=== PATIENT | female | born 1990 | race Caucasian/White ===

== ENCOUNTER 2018-09-10 21:00 | Emergency (ER) | payer OTHER ==
[2018-09-10 21:05] VITALS: TEMP 98.3
--- NOTE | 2018-09-10 21:15 | ED ---
Wound/Laceration HPI - General Chief Complaint: Wound/Laceration Stated Complaint: Hand Lac Time Seen by Provider: 09/10/18 21:15 Source: patient Mode of arrival: ambulatory Limitations: no limitations - History of Present Illness Initial Comments: Rach is a pleasant 28-year-old female presents to the emergency department today for evaluation of a laceration to her right pinky finger. Patient reports that she was washing dishes when she broke a glass and cut her finger. Patient immediately washed the area and wrapped it in a paper towel before coming to the emergency department. Patient believes her last tetanus vaccine was updated in her mid teens. - Related Data Home Medications Medication Instructions Recorded Confirmed No Known Home Medications 09/10/18 09/10/18 Allergies Allergy/AdvReac Type Severity Reaction Status Date / Time No Known Allergies Allergy Verified 09/10/18 21:24 Review of Systems ROS Statement: Those systems with pertinent positive or pertinent negative responses have been documented in the HPI. ROS Other: All systems not noted in ROS Statement are negative. Past Medical History Past Medical History: No Reported History History of Any Multi-Drug Resistant Organisms: None Reported Past Surgical History: No Surgical Hx Reported Past Psychological History: Anxiety Smoking Status: Never smoker Past Alcohol Use History: None Reported Past Drug Use History: None Reported General Exam - General Exam Comments Initial Comments: Physical Exam GENERAL: Patient is well-developed and well-nourished. Patient is nontoxic and well-hydrated and is anxious and tearful HENT: Normocephalic, Atraumatic. EYES: PERRL, EOMI PULMONARY: Unlabored respirations. CARDIOVASCULAR: Tachycardic, regular warm and well perfused extremities ABDOMEN: Soft and nontender with normal bowel sounds. SKIN: Flap laceration over the flexor surface of the pinky finger and the right hand : Deferred NEUROLOGIC: Patient is alert and oriented x3. Moving all extremities spontaneously MUSCULOSKELETAL: Normal extremities with adequate strength and full range of motion. No lower extremity swelling or edema. No calf tenderness. PSYCHIATRIC: Normal psychiatric evaluation. Limitations: no limitations Limitations: no limitations Course Vital Signs 09/10/18 21:02 Temperature 98.3 F Pulse Rate 114 H Respiratory 15 Rate Blood Pressure 135/72 O2 Sat by Pulse 100 Oximetry Procedures - Laceration Laceration #1 Consent Obtained: verbal consent Indication: laceration Site: hand Size (cm): 3 Description: flap Depth: involves muscle layer Anesthetic Used: lidocaine 1% Anesthesia Technique: nerve block Pre-repair: wound explored, irrigated extensively, deep structures intact Type of Sutures: nylon Size of Sutures: 6-0 Number of Sutures: 8 Technique: simple, interrupted Patient Tolerated Procedure: well, no complications - Nerve Block Consent Obtained: verbal consent Local Anesthetic Used: Lidocaine 1% Side: right Nerve Blocks: digital Procedure Successful: Yes Complications: none Patient Tolerated Procedure: well, no complications Medical Decision Making - Medical Decision Making Patient was seen and evaluated history is obtained from the patient Finger was anesthestized with 2ml of 15 lidocaine Wound explored, visible flexor tendons without injury Laceration is V shaped flap measures 2cm on lateral surface of finger and 1cm on medial surface Full ROM of the finger with normal strength Laceration was repaired with 8 simple interrupted sutures of 6.0 nylon Patient tolerated laceration repair well Disposition Clinical Impression: Laceration Disposition: HOME SELF-CARE Instructions (If sedation given, give patient instructions): Care For Your Stitches (DC) Additional Instructions: Return in 7 days for suture removal Is patient prescribed a controlled substance at d/c from ED?: No Referrals: None,Stated [Primary Care Provider] - 1-2 days
[2018-09-10] MEDS ORDERED: DIPH,PERTUS(ACELL)TETVAC-LF 0.5 ML VIAL IM ONE (21:31)
[2018-09-10] MEDS ORDERED: LIDOCAINE 1% INJ 10MG/ML (20 ML MDV) SQ ONE (21:31)
[2018-09-10 22:34] VITALS: BP 140/82; PULSE 91; RESP 18
== END 2018-09-10 22:26 | disposition home or self-care (01) ==
LOC: EC 21:00
DX: S61.216A Laceration without foreign body of right little finger without damage to nail, initial encounter (principal); Z23 Encounter for immunization; W25.XXXA Contact with sharp glass, initial encounter; Y93.G1 Activity, food preparation and clean up; Y92.009 Unspecified place in unspecified non-institutional (private) residence as the place of occurrence of the external cause
CPT/HCPCS: 90715; 99282; 12002; 90471; J2001

== ENCOUNTER 2021-07-18 07:00 | Inpatient (IN) | payer OTHER ==
[2021-07-18] MEDS ORDERED: TERBUTALINE 1 MG/ML VIAL SQ PRN (08:45)
[2021-07-18] MEDS ORDERED: LACTATED RINGERS 1,000 ML IV SCH (08:45)
[2021-07-18] MEDS ORDERED: METHYLERGONOVINE 0.2 MG/ML 1 ML AMP IM PRN (08:45)
[2021-07-18] MEDS ORDERED: CARBOPROST TROMETHAMINE 250 MCG/ML 1 ML AMP IM PRN (08:45)
[2021-07-18] MEDS ORDERED: OXYTOCIN 30 UNITS/500 ML NS 30 UNIT in SALINE 1 500ML.BAG IV SCH (08:45)
[2021-07-18] MEDS ORDERED: OXYTOCIN 10 UNIT/ML 1 ML VIAL IM PRN (08:45)
[2021-07-18] MEDS ORDERED: LIDOCAINE 1% (PF) 10 MG/ML (30 ML SDV) SQ PRN (08:45)
[2021-07-18] MEDS: LACTATED RINGERS 1,000 ML IV SCH ×3 (09:10→22:24)
[2021-07-18 09:53] LABS: Anisocytosis Slight; Basophils % (A) 0 %; Eosinophils % (A) 0 %; Lymphocytes # (A) 1.6 k/uL (1.0-4.8); Lymphocytes % (A) 21 %; MCH 26.2 pg (25.0-35.0); MCHC 33.4 g/dL (31.0-37.0); MCV 78.4 fL (80.0-100.0); Mean Platelet Volume 12.4; Microcytosis Slight; Monocytes # (A) 0.4 k/uL (0-1.0); Monocytes % (A) 5 %; Neutrophils # (A) 5.6 k/uL (1.3-7.7); Neutrophils % (A) 72 %; RBC 4.59 m/uL (3.80-5.40); RDW 17.7 % (11.5-15.5); WBC 7.8 k/uL (3.8-10.6)
[2021-07-18 10:06] LABS: Platelet Count 164 k/uL (150-450)
[2021-07-18 10:07] LABS: Large Platelets Present
--- NOTE | 2021-07-18 13:00 | P.HPOB ---
History of Present Illness H&P Date: 07/18/21 Chief Complaint: SROM 31 year old presents at 39 weeks 6 days with SROM at about 530am. Her cervix is 1/90/-2 and she is wilma every 3-8 minutes. heart tones 135 with moderate variability and reactive. Review of Systems All systems: negative Constitutional: Denies chills, Denies fever Eyes: denies blurred vision, denies pain Ears, nose, mouth and throat: Denies headache, Denies sore throat Cardiovascular: Denies chest pain, Denies shortness of breath Respiratory: Denies cough Gastrointestinal: Denies abdominal pain, Denies diarrhea, Denies nausea, Denies vomiting Genitourinary: Denies dysuria, Denies hematuria Musculoskeletal: Denies myalgias Integumentary: Denies pruritus, Denies rash Neurological: Denies numbness, Denies weakness Psychiatric: Denies anxiety, Denies depression Endocrine: Denies fatigue, Denies weight change Past Medical History Past Medical History: No Reported History History of Any Multi-Drug Resistant Organisms: None Reported Past Surgical History: No Surgical Hx Reported Past Psychological History: Anxiety Smoking Status: Never smoker Past Alcohol Use History: None Reported Past Drug Use History: None Reported - Past Family History Father Family Medical History: CVA/TIA Medications and Allergies Home Medications Medication Instructions Recorded Confirmed Type Pnv,Calcium 72/Iron/Folic Acid 1 each PO DAILY 07/18/21 07/18/21 History [ Plus Tablet] Allergies Allergy/AdvReac Type Severity Reaction Status Date / Time No Known Allergies Allergy Verified 07/18/21 07:30 Exam Osteopathic Statement: *. No significant issues noted on an osteopathic structural exam other than those noted in the History and Physical/Consult. Vital Signs Temp Pulse Resp BP Pulse Ox 07/18/21 08:44 99.0 F 89 16 149/81 07/18/21 07:29 98.1 F 97 16 142/88 99 Intake and Output 07/17/21 07/18/21 07/18/21 22:59 06:59 14:59 Other: Weight 74.843 kg Heart: Regular rate and rhythm Lungs: Clear to auscultation bilaterally Abdomen: Soft, nontender Extremities: Negative Homans sign Results Result Diagrams: 07/18/21 09:03 Abnormal Lab Results - Last 24 Hours (Table) 07/18/21 Range/Units 09:03 MCV 78.4 L (80.0-100.0) fL RDW 17.7 H (11.5-15.5) % Assessment and Plan (1) Spontaneous rupture of amniotic membranes Current Visit: Yes Status: Acute Code(s): [id number] - SNOMED Code(s): 077775686 (2) 39 weeks gestation of Current Visit: Yes Status: Acute Code(s): Z3A.39 - 39 WEEKS GESTATION OF SNOMED Code(s): 58228760 Plan: 1. admit to [facility] 2. pitocin augmentation if necessary-discussed in patient huddle with shared decision making
[2021-07-18] MEDS ORDERED: AMPICILLIN 2,000 MG in SODIUM CHLORIDE 0.9% 100 ML IVPB STA (18:22)
[2021-07-18] MEDS: BUTORPHANOL 1 MG/ML 1 ML VIAL IV PRN (22:10)
[2021-07-18] MEDS: AMPICILLIN 1,000 MG in SODIUM CHLORIDE 0.9% 50 ML IVPB SCH (22:23)
[2021-07-19] MEDS: BUTORPHANOL 1 MG/ML 1 ML VIAL IV PRN (00:15)
[2021-07-19] MEDS: AMPICILLIN 1,000 MG in SODIUM CHLORIDE 0.9% 50 ML IVPB SCH ×2 (04:26→06:46)
[2021-07-19] MEDS: LACTATED RINGERS 1,000 ML IV SCH (04:29)
[2021-07-19] MEDS ORDERED: HYDROCORTISONE 2.5% RECTAL CREAM 30 GM TUBE RECTAL PRN (06:51)
[2021-07-19] MEDS ORDERED: ZOLPIDEM 5 MG TAB PO PRN (06:51)
[2021-07-19] MEDS ORDERED: diphenhydrAMINE 50 MG CAP PO PRN (06:51)
[2021-07-19] MEDS ORDERED: LANOLIN CREAM 5 GM TUBE TOPICAL PRN (06:51)
[2021-07-19] MEDS ORDERED: diphenhydrAMINE 25 MG CAP PO PRN (06:51)
[2021-07-19] MEDS ORDERED: diphenhydrAMINE 50 MG/ML 1 ML VIAL IVP PRN ×2 (06:51)
[2021-07-19] MEDS ORDERED: BENZOCAINE/MENTHOL SPRAY 1 GM/SPRAY AEROSOL TOPICAL PRN (06:51)
[2021-07-19] MEDS ORDERED: SIMETHICONE 80 MG CHEWABLE PO PRN (06:51)
--- NOTE | 2021-07-19 06:51 | P.PROBDLV ---
Vaginal Delivery Note - . Vaginal Delivery Note: 31 year old presents at 39 weeks 6 days with SROM at about 530am. Her cervix is 1/90/-2 and she is wilma every 3-8 minutes. heart tones 135 with moderate variability and reactive. After a few hours she was still 1 cm dilated so Pitocin augmentation was started. When she started wilma more regularly heart tones still having moderate variability did have occasional variable decelerations down to 60 with good return to baseline. When these variables got to be repetitive, Pitocin was stopped and category 1 heart tones returned. She had moderate variability and accelerations without decelerations. Throughout the evening and night she did still have occasional variable decelerations that responded to intrauterine resuscitation. She had 2 doses of IV pain medication and her cervix was completely dilated at 3:09 AM. She pushed, delivered a viable male infant over intact perineum at 5:38 AM. Head delivered with a brow presentation, double nuchal cord reduced, anterior shoulder delivered gentle downward guidance folic posterior shoulder and rest of body. Nose and mouth bulb suctioned, cord clamped and cut, infant placed mother's abdomen and then handed off to waiting nurses. Apgars 2 at 1 minute, 6 at 5 minutes and 7 at 10 minutes. Weight 6 pounds 13.5 ounces. Placenta delivered spontaneously, intact with three-vessel cord at 5:43 AM. Vagina, cervix, perineum inspected. First-degree midline laceration repaired with 3-0 Vicryl. Estimated blood loss 150 mL. The baby was taken to Level 1 nursery and the mother is in stable condition.
[2021-07-19] MEDS ORDERED: OXYTOCIN 30 UNITS/500 ML NS 30 UNIT in SALINE 1 500ML.BAG IV SCH (07:00)
[2021-07-19] MEDS: IBUPROFEN 600 MG TAB PO PRN ×3 (07:38→23:03)
[2021-07-19] MEDS: SENNOSIDES-DOCUSATE SODIUM 1 EACH TAB PO SCH ×2 (07:38→20:44)
[2021-07-19] MEDS: ACETAMINOPHEN TAB 325 MG TAB PO PRN ×2 (12:48→20:44)
[2021-07-20 07:44] LABS: Anisocytosis Slight; Basophils % (A) 0 %; Eosinophils # (A) 0.1 k/uL (0-0.7); Eosinophils % (A) 1 %; HCT 27.7 % (34.0-46.0); Lymphocytes # (A) 2.1 k/uL (1.0-4.8); Lymphocytes % (A) 12 %; MCH 26.1 pg (25.0-35.0); MCHC 32.6 g/dL (31.0-37.0); Mean Platelet Volume 9.3; Microcytosis Slight; Monocytes % (A) 5 %; Neutrophils # (A) 14.6 k/uL (1.3-7.7); Neutrophils % (A) 81 %; Platelet Count 125 k/uL (150-450); RBC 3.46 m/uL (3.80-5.40); RDW 17.8 % (11.5-15.5)
[2021-07-20 08:32] VITALS: RESP 16
[2021-07-20] MEDS: SENNOSIDES-DOCUSATE SODIUM 1 EACH TAB PO SCH ×2 (08:34→19:54)
[2021-07-20] MEDS: IBUPROFEN 600 MG TAB PO PRN ×2 (08:37→19:54)
--- NOTE | 2021-07-20 12:58 | P.PNOBGVD ---
Subjective - Subjective Principal diagnosis: Status post vaginal delivery day #1 Interval history: Patient is sore but doing well. She is ambulating without difficulty. Lochia is minimal. Her pain is well-controlled on her current pain medications. She is pumping her breast milk. Baby is in level I nursery. Patient reports: Reports appetite normal, Reports voiding normally, Reports pain well controlled, Reports ambulating normally : other (In level I nursery) Objective - Latest Vital Signs Latest vital signs: Vital Signs Temp Pulse Resp BP Pulse Ox 07/20/21 12:00 98.1 F 80 16 122/77 07/20/21 08:00 98.2 F 113 H 16 120/80 07/20/21 00:00 98.1 F 92 14 117/73 97 07/19/21 16:00 97.8 F 82 16 127/72 Intake and Output 07/19/21 07/20/21 07/20/21 22:59 06:59 14:59 Other: # Voids 2 1 - Exam Extremities: Present: normal. Absent: tenderness, edema Abdomen: Present: normal appearance, soft. Absent: distention, tenderness Uterus: Present: normal, firm. Absent: tenderness - Labs Labs: Abnormal Lab Results - Last 24 Hours (Table) 07/20/21 Range/Units 07:27 WBC 18.0 H (3.8-10.6) k/uL RBC 3.46 L (3.80-5.40) m/uL Hgb 9.0 L D (11.4-16.0) gm/dL Hct 27.7 L (34.0-46.0) % RDW 17.8 H (11.5-15.5) % Plt Count 125 L (150-450) k/uL Neutrophils # 14.6 H (1.3-7.7) k/uL Assessment and Plan Assessment: Status post vaginal delivery day #1 Plan: Continue with care today. Will repeat CBC in the morning due to el evated white count, anemia, and thrombocytopenia. No fevers. Patient does state that she was taking iron before delivery. Will add iron to her meds.
[2021-07-20] MEDS: ACETAMINOPHEN TAB 325 MG TAB PO PRN (16:13)
[2021-07-21 07:05] LABS: Anisocytosis Slight; Basophils % (A) 0 %; Eosinophils # (A) 0.1 k/uL (0-0.7); Eosinophils % (A) 1 %; HGB 9.4 gm/dL (11.4-16.0); Hypochromasia Slight; Lymphocytes # (A) 1.9 k/uL (1.0-4.8); Lymphocytes % (A) 16 %; MCH 26.5 pg (25.0-35.0); MCHC 32.5 g/dL (31.0-37.0); MCV 81.5 fL (80.0-100.0); Mean Platelet Volume 11.7; Microcytosis Slight; Monocytes # (A) 0.5 k/uL (0-1.0); Monocytes % (A) 5 %; Neutrophils # (A) 8.8 k/uL (1.3-7.7); Neutrophils % (A) 76 %; RBC 3.55 m/uL (3.80-5.40); RDW 17.9 % (11.5-15.5); WBC 11.6 k/uL (3.8-10.6)
[2021-07-21] MEDS: IBUPROFEN 600 MG TAB PO PRN (08:40)
[2021-07-21 08:59] LABS: Large Platelets Present; Platelet Count 167 k/uL (150-450)
[2021-07-21] MEDS ORDERED: PRENATAL VIT-IRON-FOLIC ACID 1 EACH CAP PO SCH (09:00)
[2021-07-21] MEDS: SENNOSIDES-DOCUSATE SODIUM 1 EACH TAB PO SCH (10:37)
--- NOTE | 2021-07-21 11:50 | P.DS ---
Providers Date of admission: 07/18/21 08:05 Expected date of discharge: 07/21/21 Attending physician: Rossy Molrey Primary care physician: Stated None Hospital Course: This is a 31-year-old female 1 para 0 at 39-6/7 weeks who presented in labor with spontaneous rupture of membranes. She delivered vaginally a viable male on 07/19/2021 with scores of 2 at 1 minute and 6 at 5 minutes and 7 at 10 minutes with a brow presentation and nuchal cord 2 and weight of 6 pounds 13.5 ounces. Her course has been uncomplicated. Baby is in level I nursery. She is working on pumping her breast milk. Lochia has been decreasing. Her pain is fairly well controlled with ibuprofen. Baby will need to stay longer and therefore she plans to go to the [facility]. Vital signs are stable. Abdomen is soft with fundus firm and nontender. Extremities show negative Homans. Impression is status post vaginal delivery day #2. Plan is to discharge home today. Routine instructions are given. She will be given a prescription for a breast pump. She also will be given prescription for ibuprofen. She is advised follow up with Dr. Morley in the office in 6 weeks. She is advised to call the office if she has any further questions or concerns prior to her appointment time. Procedures: Spontaneous vaginal delivery of a viable male infant on 07/19/2021 Patient Condition at Discharge: Stable Plan - Discharge Summary New Discharge Prescriptions: New Ibuprofen [Motrin] 600 mg PO Q6HR PRN #60 tab PRN Reason: Mild Pain (Scale 1 To 3) Continue Pnv,Calcium 72/Iron/Folic Acid [ Plus Tablet] 1 each PO DAILY Discharge Medication List Pnv,Calcium 72/Iron/Folic Acid [ Plus Tablet] 1 each PO DAILY 07/18/21 [History] Ibuprofen [Motrin] 600 mg PO Q6HR PRN #60 tab 07/21/21 [Rx] Follow up Appointment(s)/Referral(s): Rossy Morley DO [Doctor of Osteopathic Medicine] - 08/30/21 11:15 am (post op. appointment 08/30/21 @11:15am) Activity/Diet/Wound Care/Special Instructions: Instructions 1. Do not begin any exercise program for 3 weeks. 2. Do not resume sexual relations for 3 weeks or longer if uncomfortable. 3. You may take tub baths or showers at any time. 4. You may use tampons if desired after 3 weeks. 5. Keep the area of episiotomy (stitches) clean and dry. 6. If you are not nursing, wear a good fitting, supportive bra during the day and limit fluid intake for at least 1 week to prevent breast engorgement. 7. Call the office, [phone], within the next week to make appointment for your 6 week checkup if it has not already been made. 8. Report any of the following occurrences to the doctor promptly: a. Heavy, excessive bleeding b. Chills, fever c. Burning or frequency of urination d. Pain or redness and breasts if nursing e. Increasing pain or swelling in episiotomy (stitches). In addition to the above instructions, the following additional should be followed: 1. No heavy lifting or straining (exercising) until after 6 week checkup. 2. Keep abdominal incision clean and dry: You may wear a dressing if more comf ortable. 3. Make office appointment for 10 days after going home or as instructed by her doctor. Discharge Disposition: HOME SELF-CARE
[2021-07-21 12:26] VITALS: TEMP 98.2
[2021-07-21] MEDS: ACETAMINOPHEN TAB 325 MG TAB PO PRN (12:30)
[2021-07-21] MEDS ORDERED: FERROUS SULFATE 325 MG TAB PO SCH (12:30)
[2021-07-21 16:33] VITALS: BP 127/79; PULSE 77
== END 2021-07-21 18:40 | disposition home or self-care (01) | DRG 807 ==
LOC: FBPOP 07:00 → 4FBP 08:05
PROVIDERS: ADMIT Obstetrics & Gynecology; ATTEND Obstetrics & Gynecology
PROC: 10E0XZZ Delivery of Products of Conception, External Approach (ICD-10-PCS; principal; 2021-07-19)
PROC: 0HQ9XZZ Repair Perineum Skin, External Approach (ICD-10-PCS; principal; 2021-07-19)
DX: O32.3XX0 Maternal care for face, brow and chin presentation, not applicable or unspecified (principal); Z37.0 Single live birth; O69.81X0 Labor and delivery complicated by cord around neck, without compression, not applicable or unspecified; O70.0 First degree perineal laceration during delivery; O76 Abnormality in fetal heart rate and rhythm complicating labor and delivery; F41.9 Anxiety disorder, unspecified; O99.344 Other mental disorders complicating childbirth; Z3A.39 39 weeks gestation of pregnancy; Z82.3 Family history of stroke
CPT/HCPCS: 59025; 84112; 85025; 86850; 86900; 86901; 99213